=== PATIENT | female | born 1955 | race African-American/Black ===

== ENCOUNTER 2018-08-03 08:51 | Emergency (ER) | payer MEDICAID ==
[~2018-08-03] VITALS: Ht 154.9 cm; Wt 74.1 kg
[2018-08-03 10:04] VITALS: BP 155/82
== END 2018-08-03 10:07 | disposition home or self-care (01) ==
LOC: ER 08:58
DX: I10 Essential (primary) hypertension (principal); Z76.0 Encounter for issue of repeat prescription; Z88.0 Allergy status to penicillin
CPT/HCPCS: 93005